=== PATIENT | male | born 2000 | race Hispanic/Latino ===

== ENCOUNTER 2021-07-05 12:53 | Emergency (ER) | payer SELFPAY ==
[2021-07-05 13:16] LABS: Absolute Lymphocytes (CBC) 2.4 K/uL (0.7-4.9); Hematocrit 46.9 % (39.6-49.0); Lymphocytes % 30.6 % (15.3-44.8); MPV 8.7 fL (7.6-11.3); RBC Red Blood Cell Count 5.36 M/uL (4.33-5.43)
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
[2021-07-05 14:13] LABS: BUN Blood Urea Nitrogen 14 mg/dL (7-18); Bicarbonate 24 mmol/L (21-32); Glucose Level 107 mg/dL (74-106); Potassium 3.5 mmol/L (3.5-5.1); Sodium Level 139 mmol/L (136-145)
[2021-07-05] MEDS ORDERED: LIDOCAINE 1% 20 ML MDV ONE (14:59)
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
[2021-07-05 16:00] VITALS: O2SAT 98
[2021-07-05 16:02] VITALS: BP 104/77
== END 2021-07-05 15:54 | disposition home or self-care (01) ==
LOC: ER 12:53
PROC: 0JQP0ZZ Repair Left Lower Leg Subcutaneous Tissue and Fascia, Open Approach (ICD-10-PCS; principal; 2021-07-05)
PROC: 0JQN0ZZ Repair Right Lower Leg Subcutaneous Tissue and Fascia, Open Approach (ICD-10-PCS; 2021-07-05)
DX: S81.011A Laceration without foreign body, right knee, initial encounter (principal); S81.812A Laceration without foreign body, left lower leg, initial encounter; V49.40XA Driver injured in collision with unspecified motor vehicles in traffic accident, initial encounter
CPT/HCPCS: 36415; 70450; 71260; 72125; 74177; 80048; 85025; 99284; Q9967